=== PATIENT | female | born 1995 | race Asian ===

== ENCOUNTER 2022-03-20 14:31 | Emergency (ER) | payer MEDICAID, OTHER ==
--- NOTE | 2022-03-20 16:16 | NUR ---
PT LEFT WITHOUT BEEN TRIAGED.
== END 2022-03-20 16:18 | disposition left against medical advice (07) ==
LOC: ER 14:34
DX: Z53.21 Procedure and treatment not carried out due to patient leaving prior to being seen by health care provider (principal)